=== PATIENT | female | born 1995 | race Caucasian/White ===

== ENCOUNTER 2022-09-07 14:51 | Outpatient (REF) | payer MEDICAID, SELFPAY ==
[2022-09-07 15:24] LABS: MANUAL DIFF FLAG NO
[2022-09-07 15:30] LABS: Basophils Percent Auto 0.6 % (0-2); Eosinophils Absolute Auto 0.3 X10*3/uL (0.0-0.4); Eosinophils Percent Auto 3.9 % (0-4); Hematocrit 33.2 % (37.0-47.0); Hemoglobin 10.3 g/dl (12.0-16.0); Imm Gran Abs Auto 0.02 X10*3/uL (0.00-0.03); Imm Gran Pct Auto 0.3 % (0.0-0.4); Lymphocytes Absolute Auto 2.4 X10*3/uL (1.2-4.9); Lymphocytes Percent Auto 33.4 % (20-40); Mean Corpuscular Volume 80.6 fL (80.0-98.0); Mean Platelet Volume 10.1 fL (9.4-12.3); Monocytes Absolute Auto 0.7 X10*3/uL (0.1-1.2); Monocytes Percent Auto 8.9 % (2-11); Neutrophils Absolute Auto 3.9 x10*3/uL (2.0-8.3); Neutrophils Percent Auto 52.9 % (45-73); Platelet Count 362 X10*3/uL (160-400); Red Blood Count 4.12 X10*6/uL (4.20-5.50); Red Cell Distribution Width 16.4 % (11.0-16.0); White Blood Count 7.3 X10*3/uL (4.8-10.8)
[2022-09-07 15:57] LABS: Alanine Aminotransferase 16 U/L (0-31); Albumin Level 4.2 g/dL (3.5-5.0); Alkaline Phosphatase 89 U/L (39-117); Anion Gap 13 (12-20); Aspartate Amino Transferase 18 U/L (5-31); Bilirubin Direct < 0.2 mg/dL (0.0-0.5); Bilirubin Total 0.2 mg/dL (0.0-1.0); Blood Urea Nitrogen 14 mg/dL (9-16); Calcium 9.6 mg/dL (8.4-10.2); Carbon Dioxide 28 mmol/L (22-29); Chloride 103 mmol/L (96-108); Estimated Glomerular Filt Rate > 60; Glucose Random 86 mg/dL (60-115); Potassium 4.8 mmol/L (3.3-5.1); Sodium 139 mmol/L (135-145); Total Protein 7.7 g/dL (6.5-8.0)
[2022-09-08 10:17] LABS: HBS Num1 5.66 mIU/mL (0-7.99); HBc Num1 0.05 S/CO (0.00-0.79); HBsAGNum1 0.14 S/CO (0.00-0.99); Hepatitis B Core Antibody Nonreactive (Nonreactive); Hepatitis B Surface Antigen Negative (Negative); ~HepC Num1 0.24 S/CO (0.00-0.79); ~Hepatitis B Surface Antibody NONREACTIVE (Nonreactive); ~Hepatitis C Antibody Nonreactive (Nonreactive)
[2022-09-09 07:30] LABS: Hepatitis A Antibody IgM 0.18 Index (0-0.79); ~Hepatitis A Antibody IgM Nonreactive (Nonreactive)
== END 2022-09-07 14:52 | disposition home or self-care (01) ==
LOC: HO.LAB 14:51
PROVIDERS: PCP Nurse Practitioner Family; Visit Provider Nurse Practitioner Psychiatric/Mental Health
DX: F10.20 Alcohol dependence, uncomplicated (principal)
CPT/HCPCS: 36415; 80048; 80076; 85025; 86704; 86706; 86709; 86803; 87340; 99211

== ENCOUNTER 2022-09-22 12:30 | Outpatient (RCR) | payer OTHER, SELFPAY ==
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
[2022-09-02 12:02] VITALS: BP 126/80; PULSE 88; TEMP 36.3
[2022-09-02 12:10] VITALS: BMI 30.9
--- NOTE | 2022-09-02 12:55 | PC.ADMIT ---
Patient is a 27 year old female who was referred to [facility] by her prescriber. Patient recently was admitted and discharged from [facility] s/p by cutting her wrist after heavily drinking alcohol. Patient believes that alcohol is a problem for her. She reports alcohol has impaired her judgment and fears urges to drink will interfere with her treatment. Patient reports passive SI, denied plan or intent to kill herself. Denied thoughts to harm herself. Patient has a diagnosis of Alcohol use disorder and Bipolar disorder. Patient is alert and oriented x4. Calm and cooperative. Presented with depressed mood and affect. Patient given a copy of her safety plan if needed. Patient given verbal and written information about AA meetings where she lives, 101 things she can do instead of using alcohol, drugs, and self harm behaviors, and marijuana use and addiction. Patient's goal this weekend is to attend AA meetings this weekend.
[2022-09-05 17:43] LABS: Amphetamine Screen Urine Not Detected (Not Detect); Barbiturates, Urine Not Detected (Not Detect); Benzodiazepines Screen Urine Not Detected (Not Detect); Cannabinoid Screen Urine POSITIVE (Not Detect); Cocaine Screen Urine Not Detected (Not Detect); Fentanyl, urine Not Detected (Not Detect); Opiate Screen Urine Not Detected (Not Detect); Phencyclidine Screen Urine Not Detected (Not Detect)
--- NOTE | 2022-09-07 14:56 | HO.PHPPROGNO ---
Subjective Subjective Date of Service: 09/07/22 Reason For Visit: bipolar,depression,anxiety Medical Problems Affecting Mental Status: No Interim History: Patient describes mood as ?agitated, angry, frustrated ?. Craving alcohol. Last drink was 1 month ago. Experiencing ongoing akathisia, reports the Cogentin is not helping enough. Passive SI, no intent/plan. Medication Compliance: Yes Side effects from medications: Yes (Active seizure from quetiapine.) Attending Groups: Yes Review of Systems Acute medical concerns: No Medical Review of Systems: unchanged Review of Systems Review of Systems Yes all other systems are reviewed and are negative Constitutional: Reports no additional constitutional complaints Mental Status Exam Mental Status Exam Narrative: NAD. Patient Appearance: Appropriate Patient Orientation: Person, Place, Time and Situation Level of Consciousness: Appropriate and Restless Patient Behavior: Appropriate, Cooperative and Good Eye Contact Mood Description: Depressed, Anxious and Angry Affect Description: Depressed, Anxious and Angry Patient Cognition Impaired: No Ability to Follow Directions: Good Speech Pattern: Clear and Appropriate Memory Description: Intact Hallucinations: None Delusions: Not Present Thought Process: Intact Thought Content: positive for Intact and positive for Suicidal Ideation (Passive, no intent or plan) Depressive Symptoms: Increased Anxiety, Increased Irritability, Difficulty Sleeping, Changes in Appetite (increased), Hopelessness, Isolating-Friends/Family, Increased Fatigue, Thoughts of /Suicide and Difficulty Concentrating Abnormal Motor Activity Signs and Symptoms: Restlessness Judgement: Fair Diagnostics Vital Signs (24Hr): BMI result Body Mass Index 30.9 Labs Labs: Laboratory Results - last 48 hr 09/05/22 11:51 Urine Opiates Screen Not Detected Urine Fentanyl Screen Not Detected Ur Barbiturates Screen Not Detected Ur Phencyclidine Scrn Not Detected Ur Amphetamines Screen Not Detected U Benzodiazepines Scrn Not Detected Urine Cocaine Screen Not Detected U Marijuana (THC) Screen POSITIVE H Assessment & Plan Assessment & Plan (1) Alcohol dependence, uncomplicated: Status: Acute Code(s): F10.20 - Alcohol dependence, uncomplicated Assessment and Plan: Patient describes mood as ?agitated, angry, frustrated ?. Craving alcohol. Discussed referral to [facility], as well as trial of naltrexone oral in order to help manage cravings. Discussed medications in detail, including risks, benefits, side effects, etc. Encouraged patient to utilize outside supports, including 12-step meetings, her mother, and a close friend. Participating in COD groups. Last drink was 1 month ago. Experiencing ongoing akathisia, reports the Cogentin is not helping enough. Has been taking 2 tabs of 0.5 instead of one tab, with little improvement. Discussed current dose of quetiapine. She says current dose is working to help manage bipolar sx. Discussed increasing dose of cogentin, was agreeable with this. Passive SI, no intent/plan. (2) Bipolar 2 disorder, major depressive episode: Status: Acute Code(s): F31.81 - Bipolar II disorder (3) Cannabis dependence: Status: Acute Code(s): F12.20 - Cannabis dependence, uncomplicated Plan 1. Continue with current [facility] plan of care. 2. Patient referred to [facility]. 3. Start naltrexone 25mg X 4 days, with increase to 50mg daily thereafter. 4. Increase benzotropine to 1mg BID. 5. Follow-up as per protocol. Patient educated on: diagnosis, medication risk/benefits, substance abuse and therapeutic strategies Informed Consent: understands Reason for contiued partial hosp. stay Substantial Risk for: harm to self, inability to function and rapid decompensation Certification I certify that partial hospital treatment is medically necessary due to the symptoms and problems resulting from the patient's mental illness and the failure to treat the patient at the partial hospital level of care would likely result in the patient requiring inpatient psychiatric care which could not be prevented at a less intensive level of care. I spent minutes with the patient and/or on the patient floor today, greater than?50% of which was spent counseling/coordinating care. Discharge Plan Discharge Attending provider: Darnell Beckett Medications: New naltrexone 50 mg tablet See Rx Instructions .ROUTE .COMPLEX Qty: 7 0RF Rx Instructions: Take 1/2 tab X 4 days, then start taking one tab (50mg daily). benztropine 1 mg tablet 1 mg PO BID Qty: 30 0RF No Action quetiapine [Seroquel] 25 mg Tablet 25 mg PO BEDTIME Rx Instructions: Take with 50 mg tab levothyroxine 88 mcg Tablet 88 mcg PO DAILY lorazepam 0.5 mg Tablet 0.5 mg PO DAILY PRN (Reason: Anxiety) pantoprazole 40 mg Tablet,Delayed Release (Dr/Ec) 40 mg PO BID duloxetine 60 mg Capsule,Delayed Release(Dr/Ec) 60 mg PO DAILY quetiapine [Seroquel] 50 mg Tablet 50 mg PO BEDTIME Rx Instructions: Take with 25 mg tablet, total dose 75 mg daily. quetiapine [Seroquel] 50 mg Tablet 50 mg PO BID PRN (Reason: Anxiety) Vivitrol 380 mg suspension,extended rel recon 380 mg IM Q4W Qty: 1 5RF
--- NOTE | 2022-09-08 13:13 | HO.PHPIOP ---
I called and spoke with pt after she abruptly left group stating she is very angry and wants a drink of alcohol. She said she is feeling calmer, and apologized for leaving. She said she is going to attend a meeting, and that there is a meeting in-person that she can get to at 1:30 (I called at 1pm). She said she is safe, and is not planning on drinking, and that she will be in program tomorrow.
--- NOTE | 2022-09-09 08:12 | HO.PHPIOP ---
Case opened in treatment team
--- NOTE | 2022-09-09 15:32 | HO.PHPIOP ---
The client left early. She called and reported that she received a call for her doctor that she has a positive strep test and is starting antibiotics . She states that she will be in Monday.
--- NOTE | 2022-09-12 13:50 | P.PNPSP_ITS ---
Subjective Subjective Date of Service: 09/12/22 Reason For Visit: bipolar,depression,anxiety Medical Problems Affecting Mental Status: No Interim History: Patient reports continued akathisia symptoms from quetiapine. Has been taking increased dose of Cogentin with no benefit. Last took quetiapine Monday night. Describes mood as ?okay?. No SI, no safety concerns reported. Sleep continues poor to fair, worsened since stopping Seroquel several nights ago. Has continued abstinence from alcohol. Has been attending AA meetings regularly. Medication Compliance: Intermittent Side effects from medications: Yes (Active seizure/EPS from quetiapine.) Attending Groups: Yes Review of Systems Acute medical concerns: No Medical Review of Systems: unchanged Review of Systems Review of Systems Yes all other systems are reviewed and are negative Constitutional: Reports no additional constitutional complaints Mental Status Exam Mental Status Exam Narrative: NAD. Patient Appearance: Appropriate Patient Orientation: Person, Place, Time and Situation Level of Consciousness: Appropriate and Restless Patient Behavior: Appropriate, Cooperative and Good Eye Contact Mood Description: Appropriate Affect Description: Depressed and Anxious (Appears to be improving ) Patient Cognition Impaired: No Ability to Follow Directions: Good Speech Pattern: Clear and Appropriate Memory Description: Intact Hallucinations: None Delusions: Not Present Thought Process: Intact Thought Content: positive for Intact and positive for Suicidal Ideation (Passive, no intent or plan) Depressive Symptoms: Increased Anxiety, Difficulty Sleeping, Changes in Appetite (increased), Increased Fatigue and Difficulty Concentrating Abnormal Motor Activity Signs and Symptoms: Restlessness Judgement: Fair Diagnostics Vital Signs (24Hr): BMI result Body Mass Index 30.9 Assessment & Plan Assessment & Plan (1) Bipolar 2 disorder, major depressive episode: Status: Acute Code(s): F31.81 - Bipolar II disorder Assessment and Plan: Bety describes symptoms continued of akathisia from the quetiapine, even with the increased dose of Cogentin. She stopped taking the medication Monday evening. We discussed alternatives, risks and benefits. Discussed adding risperidone and stopping all quetiapine. Discussed keeping Cogentin as needed. She was agreeable with this plan. Denies any thoughts of harm to self or others at this time, no safety concerns. Continues to remain abstinent from alcohol, attending local 12 step meetings. (2) Alcohol dependence, uncomplicated: Status: Acute Code(s): F10.20 - Alcohol dependence, uncomplicated (3) Cannabis dependence: Status: Acute Code(s): F12.20 - Cannabis dependence, uncomplicated Plan 1. Continue with current [facility] plan of care. 2. Discontinue all quetiapine. 3. Start risperidone 1 mg at bedtime. Patient educated on: diagnosis, medication risk/benefits, substance abuse and therapeutic strategies Informed Consent: understands Reason for contiued partial hosp. stay Substantial Risk for: inability to function, rapid decompensation and med/psych decompensation Certification I certify that partial hospital treatment is medically necessary due to the symptoms and problems resulting from the patient's mental illness and the failure to treat the patient at the partial hospital level of care would likely result in the patient requiring inpatient psychiatric care which could not be prevented at a less intensive level of care. I spent minutes with the patient and/or on the patient floor today, greater than?50% of which was spent counseling/coordinating care. Discharge Plan Discharge Attending provider: Darnell Beckett Medications: New naltrexone 50 mg tablet See Rx Instructions .ROUTE .COMPLEX Qty: 7 0RF Rx Instructions: Take 1/2 tab X 4 days, then start taking one tab (50mg daily). benztropine 1 mg tablet 1 mg PO BID Qty: 30 0RF risperidone [Risperdal] 1 mg tablet 1 mg PO BEDTIME Qty: 7 0RF Discontinued quetiapine [Seroquel] 25 mg Tablet 25 mg PO BEDTIME Rx Instructions: Take with 50 mg tab quetiapine [Seroquel] 50 mg Tablet 50 mg PO BEDTIME Rx Instructions: Take with 25 mg tablet, total dose 75 mg daily. quetiapine [Seroquel] 50 mg Tablet 50 mg PO BID PRN (Reason: Anxiety) No Action levothyroxine 88 mcg Tablet 88 mcg PO DAILY lorazepam 0.5 mg Tablet 0.5 mg PO DAILY PRN (Reason: Anxiety) pantoprazole 40 mg Tablet,Delayed Release (Dr/Ec) 40 mg PO BID duloxetine 60 mg Capsule,Delayed Release(Dr/Ec) 60 mg PO DAILY Vivitrol 380 mg suspension,extended rel recon 380 mg IM Q4W Qty: 1 5RF Stand Alone Forms: Patient Portal Discharge page
--- NOTE | 2022-09-22 13:02 | HO.PHPPROGNO ---
Subjective Subjective Date of Service: 09/22/22 Reason For Visit: bipolar,depression,anxiety Medical Problems Affecting Mental Status: No Interim History: Reports overall mood more stable. No SI. States she is ?a little anxious ?, as today is her last day. Wants to go to [facility] for further substance use treatment upon discharge from her today. Has been maintaining abstinence from alcohol throughout program. Attending regular 12 step meetings in community. Scheduled with [facility] for Vivitrol injection. Medication Compliance: Yes Side effects from medications: No Attending Groups: Yes Review of Systems Acute medical concerns: No Medical Review of Systems: unchanged Review of Systems Review of Systems Yes all other systems are reviewed and are negative Constitutional: Reports no additional constitutional complaints Mental Status Exam Mental Status Exam Narrative: NAD. Patient Appearance: Appropriate Patient Orientation: Person, Place, Time and Situation Level of Consciousness: Appropriate Patient Behavior: Appropriate, Cooperative and Good Eye Contact Mood Description: Appropriate and Anxious Affect Description: Appropriate Patient Cognition Impaired: No Ability to Follow Directions: Excellent Speech Pattern: Clear and Appropriate Memory Description: Intact Hallucinations: None Delusions: Not Present Thought Process: Intact Thought Content: positive for Intact Judgement: Good Diagnostics Vital Signs (24Hr): BMI result Body Mass Index 30.9 Assessment & Plan Assessment & Plan (1) Alcohol dependence, uncomplicated: Status: Acute Code(s): F10.20 - Alcohol dependence, uncomplicated Assessment and Plan: Patient receiving naltrexone 50 mg daily with positive affect. Has been able to maintain abstinence from alcohol. Has appointment scheduled with [facility] to receive Vivitrol injection. Plans to call [facility], to continue with treatment, as she is finding it helpful Attending regular AA meetings, finding them helpful. (2) Bipolar 2 disorder, major depressive episode: Status: Acute Code(s): F31.81 - Bipolar II disorder Assessment and Plan: Reports mood is more stable, less depressed since starting program. No SI, no safety concerns. Feels safe and stable for discharge from [facility] at this time. (3) Cannabis dependence: Status: Acute Code(s): F12.20 - Cannabis dependence, uncomplicated Assessment and Plan: Continues with cannabis use, not concerned with use at this time. Plan 1. Patient appears stable for discharge from [facility] at this time. 2. Patient to follow up with outpatient providers going forward. Patient educated on: diagnosis, medication risk/benefits and substance abuse Informed Consent: understands Reason for contiued partial hosp. stay Substantial Risk for: stable for discharge Certification I certify that partial hospital treatment is medically necessary due to the symptoms and problems resulting from the patient's mental illness and the failure to treat the patient at the partial hospital level of care would likely result in the patient requiring inpatient psychiatric care which could not be prevented at a less intensive level of care. I spent minutes with the patient and/or on the patient floor today, greater than?50% of which was spent counseling/coordinating care. Discharge Plan Discharge Attending provider: Darnell Beckett Additional Instructions: Appointment at [facility] 4th floor [address] om 09/23/22 at 2:30 PM. #[phone]. Medications: New benztropine 1 mg tablet 1 mg PO BID Qty: 30 0RF naltrexone 50 mg tablet 50 mg PO DAILY Qty: 30 0RF risperidone 1 mg tablet 1 mg PO BEDTIME Qty: 30 0RF Discontinued quetiapine [Seroquel] 25 mg Tablet 25 mg PO BEDTIME Rx Instructions: Take with 50 mg tab quetiapine [Seroquel] 50 mg Tablet 50 mg PO BEDTIME Rx Instructions: Take with 25 mg tablet, total dose 75 mg daily. quetiapine [Seroquel] 50 mg Tablet 50 mg PO BID PRN (Reason: Anxiety) No Action levothyroxine 88 mcg Tablet 88 mcg PO DAILY lorazepam 0.5 mg Tablet 0.5 mg PO DAILY PRN (Reason: Anxiety) pantoprazole 40 mg Tablet,Delayed Release (Dr/Ec) 40 mg PO BID duloxetine 60 mg Capsule,Delayed Release(Dr/Ec) 60 mg PO DAILY Vivitrol 380 mg suspension,extended rel recon 380 mg IM Q4W Qty: 1 5RF Stand Alone Forms: Patient Portal Discharge page Patient Education: Bipolar Disorder (GEN), Cannabis Abuse (DC)
== END 2022-09-22 23:59 | disposition home or self-care (01) ==
LOC: HO.PHPA 12:30
PROVIDERS: Visit Provider Psychiatry & Neurology Psychiatry
DX: F31.81 Bipolar II disorder (principal); F10.20 Alcohol dependence, uncomplicated; F12.20 Cannabis dependence, uncomplicated; Z79.899 Other long term (current) drug therapy
CPT/HCPCS: 80307; 90792; 90853

== ENCOUNTER → 2022-09-23 14:20 | Outpatient (BNVA) | payer MEDICAID, SELFPAY | PROVIDERS: PCP Nurse Practitioner Family; Visit Provider Nurse Practitioner Psychiatric/Mental Health | DX: Z51.81 Encounter for therapeutic drug level monitoring (principal); F10.20 Alcohol dependence, uncomplicated | CPT/HCPCS: 80305; 81025; 96372; 99212 ==

== ENCOUNTER → 2022-10-21 13:10 | Outpatient (BNVA) | payer MEDICAID, SELFPAY | PROVIDERS: PCP Nurse Practitioner Family; Visit Provider Nurse Practitioner Psychiatric/Mental Health | DX: Z51.81 Encounter for therapeutic drug level monitoring (principal); F10.20 Alcohol dependence, uncomplicated | CPT/HCPCS: 80305; 81025; 96372; 99212 ==

== ENCOUNTER 2022-11-21 13:06 | Outpatient (REF) | payer MEDICAID, SELFPAY ==
--- NOTE | 2022-11-21 13:12 | ECG_ITS ---
Test Reason : f31.81 Blood Pressure : / mmHG Vent. Rate : 082 BPM Atrial Rate : 082 BPM P-R Int : 152 ms QRS Dur : 088 ms QT Int : 368 ms P-R-T Axes : 054 046 031 degrees QTc Int : 429 ms Normal sinus rhythm Normal ECG No previous ECGs available Referred By: Doris Henriquez Electronically Signed By:GOKUL BAJWA MD
[2022-11-21 14:40] LABS: Anion Gap 14 (12-20); Blood Urea Nitrogen 17 mg/dL (9-16); Carbon Dioxide 21 mmol/L (22-29); Chloride 106 mmol/L (96-108); Potassium 4.3 mmol/L (3.3-5.1); Sodium 137 mmol/L (135-145)
[2022-11-21 14:41] LABS: Alanine Aminotransferase 9 U/L (0-31); Albumin Level 3.9 g/dL (3.5-5.0); Alkaline Phosphatase 95 U/L (39-117); Aspartate Amino Transferase 16 U/L (5-31); Bilirubin Total < 0.2 mg/dL (0.0-1.0); Calcium 9.1 mg/dL (8.4-10.2); Estimated Glomerular Filt Rate > 60; Glucose Random 86 mg/dL (60-115); Total Protein 7.5 g/dL (6.5-8.0)
[2022-11-21 14:56] LABS: Free T4 (Free Thyroxine) 0.91 ng/dL (0.71-1.85); Thyroid Stimulating Hormone 1.81 uIU/mL (0.32-4.0)
== END 2022-11-21 13:07 | disposition home or self-care (01) ==
LOC: HO.LAB 13:06
PROVIDERS: PCP Nurse Practitioner Family; Visit Provider Nurse Practitioner Psychiatric/Mental Health
DX: Z51.81 Encounter for therapeutic drug level monitoring (principal); F31.81 Bipolar II disorder; F10.20 Alcohol dependence, uncomplicated; F12.20 Cannabis dependence, uncomplicated; Z79.899 Other long term (current) drug therapy
CPT/HCPCS: 36415; 80053; 80305; 81025; 84439; 84443; 93005; 96372; 99212

== ENCOUNTER 2022-12-07 13:00 | Outpatient (RCR) | payer OTHER, SELFPAY ==
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
[2022-11-21 11:12] VITALS: BMI 32.8
[2022-11-21 11:13] VITALS: BP 114/78; PULSE 80; TEMP 37.2
[2022-11-21 15:30] LABS: Amphetamine Screen Urine Not Detected (Not Detect); Barbiturates, Urine Not Detected (Not Detect); Benzodiazepines Screen Urine Not Detected (Not Detect); Cannabinoid Screen Urine POSITIVE (Not Detect); Cocaine Screen Urine Not Detected (Not Detect); Fentanyl, urine Not Detected (Not Detect); Opiate Screen Urine Not Detected (Not Detect); Phencyclidine Screen Urine Not Detected (Not Detect)
--- NOTE | 2022-11-24 16:09 | HO.PHPIOP ---
Case opened in treatment team.
--- NOTE | 2022-11-29 09:56 | HO.PHPPROGNO ---
Subjective Subjective Date of Service: 11/29/22 Reason For Visit: bipolar I,ANGELA Medical Problems Affecting Mental Status: No Interim History: Reviewed labs and EKG prior to meeting with patient today, no concerns. Bety Describes mood as ?okay ?. Reports continues with ongoing anxiety. No SI, no safety concerns. Mirtazapine working well for sleep, no concerns. Finding groups helpful. Reports AUD recovery going well. 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 Medication Compliance: Yes Side effects from medications: No Attending Groups: Yes Review of Systems Acute medical concerns: No Medical Review of Systems: unchanged Review of Systems Review of Systems Yes all other systems are reviewed and are negative Constitutional: Reports no additional constitutional complaints Mental Status Exam Mental Status Exam Narrative: NAD. Patient Appearance: Appropriate Patient Orientation: Person, Place, Time and Situation Level of Consciousness: Appropriate Patient Behavior: Appropriate, Cooperative and Good Eye Contact Mood Description: Anxious Affect Description: Depressed (improving) and Flat Patient Cognition Impaired: No Ability to Follow Directions: Excellent Speech Pattern: Clear and Appropriate Memory Description: Intact Hallucinations: None Delusions: Not Present Thought Process: Intact, Goal Oriented and Linear Thought Content: positive for Intact, positive for Goal Oriented and positive for Linear Depressive Symptoms: Increased Anxiety, Changes in Appetite, Loss of Int. in Activity, Unhappiness, Increased Fatigue and Thoughts of /Suicide Judgement: Fair Diagnostics Vital Signs (24Hr): BMI result Body Mass Index 32.8 Assessment & Plan Assessment & Plan (1) Bipolar 2 disorder, major depressive episode: Status: Acute Code(s): F31.81 - Bipolar II disorder Assessment and Plan: Micki reports mood is ?okay ?, although continues with anxiety. No SI reported, no safety concerns. Tolerating medications well, including mirtazapine for sleep. Able to express some hope for the future, thinking about changing careers. Remains abstinent from alcohol at this time, did not discuss current cannabis use, although patient has been working on stopping. Finding groups helpful. (2) Alcohol dependence, uncomplicated: Status: Acute Code(s): F10.20 - Alcohol dependence, uncomplicated (3) Cannabis dependence: Status: Acute Code(s): F12.20 - Cannabis dependence, uncomplicated Plan 1. Continue with current [facility] plan of care. 2. Refill mirtazapine 3.75 p.r.n. for sleep sent to pharmacy. 3. Follow-up as per protocol. Patient educated on: diagnosis, medication risk/benefits, substance abuse and therapeutic strategies Informed Consent: understands Reason for contiued partial hosp. stay Substantial Risk for: harm to self and inability to function Certification I certify that partial hospital treatment is medically necessary due to the symptoms and problems resulting from the patient's mental illness and the failure to treat the patient at the partial hospital level of care would likely result in the patient requiring inpatient psychiatric care which could not be prevented at a less intensive level of care. Total time managing care of this patient today __20__ minutes. Discharge Plan Discharge Attending provider: Darnell Beckett Medications: New mirtazapine 7.5 mg tablet 3.75 mg PO BEDTIME PRN (Reason: sleep) Qty: 14 0RF No Action levothyroxine 88 mcg Tablet 88 mcg PO DAILY Label Comments: Last filled May 2022 3 month supply. Patient reports she has missed some doses however stated she mostly takes every day. lorazepam 0.5 mg Tablet 0.5 mg PO DAILY PRN (Reason: Anxiety) pantoprazole 40 mg Tablet,Delayed Release (Dr/Ec) 40 mg PO BID duloxetine 60 mg Capsule,Delayed Release(Dr/Ec) 60 mg PO DAILY risperidone 1 mg tablet 1 mg PO BEDTIME Rx Instructions: take one tab daily at bedtime Vivitrol 380 mg suspension,extended rel recon 380 mg IM Q4W Qty: 1 5RF Stand Alone Forms: Patient Portal Discharge page Patient Education: Mirtazapine (By mouth)
--- NOTE | 2022-12-01 10:48 | P.EN_ITS ---
Event Note Date of Service: 12/01/22 Event Note: This card writer hand called patient, as she has left early not feeling well. She reports she is safe, no intentions of self-harm. Has been experiencing cravings to drink today, but has no intent or plan to do so. Sharing a 12 step meeting tonight. Has plan to clean apartment today, talk with friends. Overall states she is feeling okay, just not a great day . Discussed going to a 12 step meeting at noon time, calling somebody such as a close friend, also option to take p.o. naltrexone today. Time Spent With Patient Time: Total time managing care of this patient today _10___ minutes.
--- NOTE | 2022-12-02 15:04 | HO.PHPIOP ---
I called and left a message on pt's home phone asking her to pls call to discuss schedule.
--- NOTE | 2022-12-07 10:25 | HO.PHPPROGNO ---
Subjective Subjective Date of Service: 12/07/22 Reason For Visit: bipolar I,ANGELA Medical Problems Affecting Mental Status: No Interim History: Describes mood as ?okay ?. Stopped mirtazapine, reports felt irritable, spending money while taking it. Overall reports improvement. No SI, no safety concerns. Remains abstinent from alcohol, decreased cannabis. No concerns, feels ready for discharge from [facility]. Medication Compliance: Yes Side effects from medications: Yes (Mirtazapine, irritability, impuls spending. Symptoms subsiding after stop) Attending Groups: Yes Review of Systems Acute medical concerns: No Medical Review of Systems: unchanged Review of Systems Review of Systems Yes all other systems are reviewed and are negative Constitutional: Reports no additional constitutional complaints Mental Status Exam Mental Status Exam Narrative: NAD. Patient Appearance: Appropriate Patient Orientation: Person, Place, Time and Situation Level of Consciousness: Appropriate Patient Behavior: Appropriate, Cooperative and Good Eye Contact Mood Description: Calm and Appropriate Affect Description: Appropriate Patient Cognition Impaired: No Ability to Follow Directions: Excellent Speech Pattern: Clear and Appropriate Memory Description: Intact Hallucinations: None Delusions: Not Present Thought Process: Intact, Goal Oriented and Linear Thought Content: positive for Intact, positive for Goal Oriented and positive for Linear Depressive Symptoms: Increased Anxiety and Thoughts of /Suicide Judgement: Good Diagnostics Vital Signs (24Hr): BMI result Body Mass Index 32.8 Assessment & Plan Assessment & Plan (1) Bipolar 2 disorder, major depressive episode: Status: Acute Code(s): F31.81 - Bipolar II disorder Assessment and Plan: Overall improved mood, describes as ?okay ?. Stable affect. No SI, no safety concerns. Stopped mirtazapine, continues with other medications as prescribed. Plans to apply for jobs after discharge from program. Able to express hope for future. (2) Alcohol dependence, uncomplicated: Status: Acute Code(s): F10.20 - Alcohol dependence, uncomplicated Assessment and Plan: Continues with abstinence, no concerns. Connected to support/recovery community. (3) Cannabis dependence: Status: Acute Code(s): F12.20 - Cannabis dependence, uncomplicated Assessment and Plan: Harm reduction, use has decreased. Plan 1. Patient appears stable for discharge from [facility] at this time. 2. Patient to follow-up with outpatient providers going forward. Patient educated on: diagnosis, medication risk/benefits, substance abuse and therapeutic strategies Informed Consent: understands Reason for contiued partial hosp. stay Substantial Risk for: stable for discharge Certification I certify that partial hospital treatment is medically necessary due to the symptoms and problems resulting from the patient's mental illness and the failure to treat the patient at the partial hospital level of care would likely result in the patient requiring inpatient psychiatric care which could not be prevented at a less intensive level of care. Total time managing care of this patient today _20___ minutes. Discharge Plan Discharge Attending provider: Darnell Beckett Medications: New mirtazapine 7.5 mg tablet 3.75 mg PO BEDTIME PRN (Reason: sleep) Qty: 14 0RF No Action levothyroxine 88 mcg Tablet 88 mcg PO DAILY Label Comments: Last filled May 2022 3 month supply. Patient reports she has missed some doses however stated she mostly takes every day. lorazepam 0.5 mg Tablet 0.5 mg PO DAILY PRN (Reason: Anxiety) pantoprazole 40 mg Tablet,Delayed Release (Dr/Ec) 40 mg PO BID duloxetine 60 mg Capsule,Delayed Release(Dr/Ec) 60 mg PO DAILY risperidone 1 mg tablet 1 mg PO BEDTIME Rx Instructions: take one tab daily at bedtime Vivitrol 380 mg suspension,extended rel recon 380 mg IM Q4W Qty: 1 5RF Stand Alone Forms: Patient Portal Discharge page Patient Education: Mirtazapine (By mouth), Bipolar Disorder (DC), Cannabis Abuse (DC)
--- NOTE | 2022-12-07 13:15 | HO.PHP ---
I called and left a message for pt's therapist at [facility], Tamera Louis. I informed her of pt's successful completion of PHP today.
== END 2022-12-07 23:59 | disposition home or self-care (01) ==
LOC: HO.PHPA 13:00
PROVIDERS: Nurse Practitioner Psychiatric/Mental Health; Visit Provider Psychiatry & Neurology Psychiatry
DX: F31.81 Bipolar II disorder (principal); F10.20 Alcohol dependence, uncomplicated; F12.20 Cannabis dependence, uncomplicated; Z79.899 Other long term (current) drug therapy
CPT/HCPCS: 80307; 90791; 90853

== ENCOUNTER → 2022-12-21 14:05 | Outpatient (BNVA) | payer MEDICAID, SELFPAY | PROVIDERS: PCP Nurse Practitioner Family; Visit Provider Nurse Practitioner Psychiatric/Mental Health | DX: F10.20 Alcohol dependence, uncomplicated (principal) | CPT/HCPCS: 99212 ==

== ENCOUNTER → 2025-08-26 09:30 | Outpatient (BNV) | payer OTHER, SELFPAY | PROVIDERS: Visit Provider Psychiatry & Neurology Psychiatry | DX: F31.81 Bipolar II disorder (principal); F10.20 Alcohol dependence, uncomplicated; F12.20 Cannabis dependence, uncomplicated | CPT/HCPCS: 99214 ==

== ENCOUNTER 2025-09-09 11:30 | Outpatient (RCR) | payer OTHER, SELFPAY ==
[2025-08-22 11:29] VITALS: BMI 33.3
[2025-08-22 11:33] VITALS: BP 108/70; PULSE 60; TEMP 36.8
--- NOTE | 2025-08-22 13:05 | PC.ADMIT ---
Patient is a 30 year old partnered female who self referred to [facility] secondary to increased depression and grief secondary to loss of her Izzy in March 2025. Patient reports she has not fully grieved the loss of her Izzy's whom she was close to. Patient reports she has been uncontrollably crying for the past five months. Patient has taken a leave of absence from work to work on her mental health. 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 She reports her boyfriend of four years is supportive whom she lives with. She also stated her mother is supportive. Patient is alert and oriented x4. She is calm and cooperative. She presented with depressed mood and anxious affect. Regarding SI patient denied currently. Patient reports she does get thoughts however she denied any plans or intent to kill herself. Patient was given a copy of her safety plan if needed. Patient reports she has been using marijuana daily and has a history of binge drinking alcohol. Patient reports she would drink anywhere from 4-10 shots of hard alcohol. Last drink was two weeks ago. Patient stated, I had 1.5 years sober and binge drank all of July almost every day . Patient reports history of alcohol withdrawal sxs 2 weeks ago stated that felt tremulousness, diarrhea, and vomiting. Denied history of seizures. Denied any current withdrawal sxs from alcohol. Patient educated about the dangers of alcohol withdrawal. Patient denied any current alcohol withdrawal sxs, no tremors, no diaphoresis, nausea, no vomiting. BP WNL. Patient does have a history of self harm by cutting for the past 14 years. Stated the last time she cut herself was a week and a 1/2 ago. Patient given education about things she can do when feeling strong emotions besides self harm.
[2025-08-22 15:03] LABS: Cannabinoid Screen Urine POSITIVE (Not Detect)
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
--- NOTE | 2025-08-26 12:03 | HO.PHP ---
[facility] staff member met with Bety to review her treatment plan. While meeting with Bety she was tearful throughout the conversation. PHP staff member attempted to provide her with support due to her struggling with the loss of her sunshine. Bety stated that she doesn't want to discuss it and said she would like to review the treatment plan. Bety continued to cry throughout the review. Bety was making comments around that she doesn't want to do this anymore or be here. [facility] assessed with Bety if she has any plan or intent to act on those thoughts. Bety disclosed that she does not and has no plan. PHP staff member voiced that Bety mentioned in group this morning that she is having thoughts around self harming. PHP staff member explored with Bety when the last time she self harmed was, which was 2 weeks ago. [facility] staff asked Bety what is stopping her from acting on those thoughts. Bety said she doesn't want to engage in cutting behaviors anymore because she is embarrased by the scars that she has left on herself. Bety mentioned she engages in this behavior to feel her emotions and get them out. PHP staff member provided her with safer alternatives such as utilizing a sensory brush, cold compress, or snapping a rubber band. Bety said she doesn't find those to be helpful. PHP staff explored if her boyfriend could lock all sharps up. She said he could but she doesn't feel that is necessary because she said if she wanted to cut, she would find a way. Bety currently has no plan or intent to act on her thoughts. Bety was able to proceed with the treatment plan.
--- NOTE | 2025-08-26 12:09 | HO.PHP ---
[facility] staff member placed a referral for OP therapy and med management for Bety through [facility]. [facility] staff member is awaiting on a call with the appointment dates and times.
--- NOTE | 2025-08-26 22:50 | HO.PHPPROGNO ---
Subjective Subjective Date of Service: 08/26/25 Reason For Visit: anxiety,depression Interim History: Patient seen with staff crying in the hallway. I cant sleep.... It's hard to fall asleep . Patient has been very easily tearful, feeling emotional overwhelmed, sometimes no clear trigger or precipitant. Tried increasing the gabapentin to 300 mg qhs for sleep. Did not fall asleep, was not sedating, but she did notice gabapentin 300 mg was helpful to relax. Is interested in taking gabapentin during the day. Continues on risperidone 0.5 mg BID helps for a little while in the morning, but then feels like she is falling apart a couple hours later. Most of day, feels vulnerable and overstimulated. Takes lorazepam 1 mg (0.5 mg ineffective) is frustrated that she tried talking to her provider about increase dose to 1 mg however the provider rxes #10 of 0.5 mg tabs Medication Compliance: Yes Side effects from medications: No Attending Groups: Yes Review of Systems Acute medical concerns: No Review of Systems Review of Systems Yes all other systems are reviewed and are negative Constitutional: Reports no additional constitutional complaints Mental Status Exam Mental Status Exam Narrative: NAD. Patient Orientation: Person, Place, Time and Situation Level of Consciousness: Appropriate Patient Behavior: Appropriate, Cooperative and Crying Mood Description: Depressed and Anxious Affect Description: Fearful and Sad Patient Cognition Impaired: No Ability to Follow Directions: Excellent Speech Pattern: Clear and Appropriate Memory Description: Intact Hallucinations: None Delusions: Not Present Thought Process: Linear Thought Content: positive for Goal Oriented and positive for Linear Depressive Symptoms: Increased Anxiety and Thoughts of /Suicide Judgement: Good Diagnostics Vital Signs (24Hr): BMI result Body Mass Index 33.3 Assessment & Plan Assessment & Plan (1) Bipolar 2 disorder, major depressive episode: Status: Acute Code(s): F31.81 - Bipolar II disorder (2) Alcohol dependence, uncomplicated: Status: Acute Code(s): F10.20 - Alcohol dependence, uncomplicated (3) Cannabis dependence: Status: Acute Code(s): F12.20 - Cannabis dependence, uncomplicated Plan Admit to [facility] VS reviewed: afebrile, BP 108/70;?60 bpm start lurasidone 20 mg mg qd with evening meal start propranolol 5-10 mg BID-TID prn anxiety (will be mindful of AE kenna since pt takes clonidine at bedtime) continue risperidone 0.5 mg BID (would benefit from TID, but instead will start lurasidone) continue Lamictal 150 mg qd continue Ativan 0.5 mg BID prn anxiety (warned regarding alcohol addiction and BZD use) continue gabapenting 100 mg tid continue clonidine 0.3 mg qhs prn (she is aware to keep propranolol dosing before 5pm) continue regular medications for now Routine lab work as indicated EKG, routine baseline QTc for medication considerations as indicated UDS as indicated MassPat reviewed Continue to monitor as per protocol Patient educated on: diagnosis, medication risk/benefits, substance abuse and therapeutic strategies Informed Consent: understands Reason for contiued partial hosp. stay Substantial Risk for: inability to function, rapid decompensation and med/psych decompensation Certification I certify that partial hospital treatment is medically necessary due to the symptoms and problems resulting from the patient's mental illness and the failure to treat the patient at the partial hospital level of care would likely result in the patient requiring inpatient psychiatric care which could not be prevented at a less intensive level of care. Total time managing care of this patient today __30__ minutes. Discharge Plan Discharge Attending provider: Mildred Trujillo Medications: New lurasidone 20 mg tablet 20 mg PO QPM Qty: 14 0RF Rx Instructions: must administer with food (at least 350 calories) propranolol 10 mg tablet 5 - 10 mg PO TID PRN (Reason: anxiety) Qty: 30 0RF gabapentin 400 mg capsule 400 mg PO TID Qty: 30 0RF Continued levothyroxine 88 mcg Tablet 88 mcg PO DAILY Patient Comments: Last filled May 2022 3 month supply. Patient reports she has missed some doses however stated she mostly takes every day. duloxetine 60 mg Capsule,Delayed Release(Dr/Ec) 60 mg PO DAILY Rx Instructions: Last filled 06/30/25 for a 90 day supply. celecoxib 200 mg capsule 200 mg PO BID lamotrigine 150 mg tablet 150 mg PO DAILY famotidine 40 mg tablet 40 mg PO BEDTIME clonidine HCl 0.3 mg tablet 0.3 mg PO BEDTIME Rx Instructions: TAKE 1 TABLET EVERY DAY BY ORAL ROUTE AT BEDTIME, FOR INSOMNIA. lorazepam 1 mg tablet 0.5 mg PO BID PRN (Reason: anxiety) esomeprazole magnesium 40 mg capsule,delayed release(DR/EC) 40 mg PO QAM Rx Instructions: TAKE 1 CAPSULE BY MOUTH 30-60 MINUTES BEFORE BREAKFAST ONCE DAILY X90 DAYS Changed risperidone 0.5 mg tablet 0.5 mg PO BID PRN (Reason: Agitation) Qty: 20 0RF No Action duloxetine 30 mg capsule,delayed release(DR/EC) See Rx Instructions .ROUTE .COMPLEX Rx Instructions: Filled on 07/21/25 fro a 90 day supply. Patient stated she is only taking 60 mg tab daily of Duloxetine and is not on the 30 mg tablet in addition to the 60 mg tablet. zolpidem 5 mg tablet 5 mg PO BEDTIME PRN (Reason: insomnia) gabapentin 100 mg capsule 100 mg PO TID Stand Alone Forms: Patient Portal Discharge page Print Language: Polish
--- NOTE | 2025-08-28 13:20 | HO.PHP ---
[facility] staff member spoke with Juanis at [facility] and gathered Bety's med provider appointment which will be with Yvonne Quiñones on September 15, 2025 at 3 PM at [address] [place] [address] [address] in [place], [place] . Juanis disclosed that there is a wait list currently for inperson OP therapy, which takes typically 3 weeks but she is going to asim as urgent since she is in PHP service setting at this time. [facility] staff member was receptive.
--- NOTE | 2025-08-28 15:17 | HO.PHP ---
Clients case was opened and reviewed in teams.
--- NOTE | 2025-09-05 15:49 | HO.PHPPROGNO ---
Subjective Subjective Date of Service: 09/02/25 Reason For Visit: anxiety,depression Interim History: Patient seen for follow-up for h/o panic attacks, persistent panic symptoms, high anxiety still experiencing a lot of anxiety says it is predominantly mental/cognitive/generalized anxiety. Body anxiety has been more much better with addition of propranolol and gabapentin during the day She has been taking gabapentin at 400 mg in the morning at lunch in the late afternoon as well as propranolol 10 mg and has noticed considerable reduction in panic symptoms. She denies any panic attacks in the interim since starting on both these medications. She denies any lightheadedness, dizziness, sedation or other side effects from medication. Appears to be well tolerated Mood is ?okyousuf reports depression severity has improved from an 8/10 to a 6 or 7/10. SHe continues on Latuda 20 mg has not had any adverse effects in his willing to increase dose to 40 mg day. He has been having difficulty sleeping found 600 mg gabapentin provided a couple more hours of sleep but still feels there is a lot of room for improvement. Reports failing trazodone not helpful , hydroxuzine, diphenhydramine. Having disrupted sleep waking every hour to. She asks about increasing dose of the Ambien to 10 mg she says she has previously been prescribed. Discussed bumping dose of gabapentin from 600 to 800 mg, and may alternate with taking 7.5 of Ambien since her oupatient provider prefered not to keep her dose at 10 mg. (denies was due to any conerns or adverse effects) Review of Systems Review of Systems Yes all other systems are reviewed and are negative Constitutional: Reports no additional constitutional complaints Mental Status Exam Mental Status Exam Patient Orientation: Person, Place, Time and Situation Level of Consciousness: Appropriate Patient Behavior: Appropriate, Cooperative and Crying Mood Description: Depressed and Anxious Affect Description: Appropriate and Constricted Patient Cognition Impaired: No Ability to Follow Directions: Excellent Speech Pattern: Clear and Appropriate Memory Description: Intact Hallucinations: None Delusions: Not Present Thought Process: Linear Thought Content: positive for Goal Oriented and positive for Linear Depressive Symptoms: Increased Anxiety and Thoughts of /Suicide Judgement: Good Diagnostics Vital Signs (24Hr): BMI result Body Mass Index 33.3 Assessment & Plan Assessment & Plan (1) Bipolar 2 disorder, major depressive episode: Status: Acute Code(s): F31.81 - Bipolar II disorder (2) Alcohol dependence, uncomplicated: Status: Acute Code(s): F10.20 - Alcohol dependence, uncomplicated (3) Cannabis dependence: Status: Acute Code(s): F12.20 - Cannabis dependence, uncomplicated Plan continue PHP increase lurasidone to 40 mg mg qd with evening meal continue propranolol 5-10 mg TID prn anxiety (to be taken no later than 5pm - since pt takes clonidine at bedtime) continue risperidone 0.5 mg BID (would benefit from TID, but instead will start lurasidone) continue Lamictal 150 mg qd increase gabapentin 400 mg tid and 800 mg qhs continue clonidine 0.3 mg qhs prn (she is aware to keep propranolol dosing before 5pm) continue zolpidem at 5- 7.5 mg qhs prn insomnia continue other regular medications Routine lab work as indicated EKG, routine baseline QTc for medication considerations as indicated Continue to monitor Patient educated on: diagnosis, medication risk/benefits, substance abuse and therapeutic strategies Informed Consent: understands Reason for contiued partial hosp. stay Substantial Risk for: inability to function, rapid decompensation and med/psych decompensation Certification I certify that partial hospital treatment is medically necessary due to the symptoms and problems resulting from the patient's mental illness and the failure to treat the patient at the partial hospital level of care would likely result in the patient requiring inpatient psychiatric care which could not be prevented at a less intensive level of care. Total time managing care of this patient today __30__ minutes. Discharge Plan Discharge Attending provider: Mildred Trujillo Medications: New propranolol 10 mg tablet 5 - 10 mg PO TID PRN (Reason: anxiety) Qty: 30 0RF gabapentin 800 mg tablet 800 mg PO BEDTIME Qty: 14 0RF lurasidone 40 mg tablet 40 mg PO QPM Qty: 14 0RF Rx Instructions: must administer with food (at least 350 calories) Continued levothyroxine 88 mcg Tablet 88 mcg PO DAILY Patient Comments: Last filled May 2022 3 month supply. Patient reports she has missed some doses however stated she mostly takes every day. duloxetine 60 mg Capsule,Delayed Release(Dr/Ec) 60 mg PO DAILY Rx Instructions: Last filled 06/30/25 for a 90 day supply. celecoxib 200 mg capsule 200 mg PO BID lamotrigine 150 mg tablet 150 mg PO DAILY famotidine 40 mg tablet 40 mg PO BEDTIME clonidine HCl 0.3 mg tablet 0.3 mg PO BEDTIME Rx Instructions: TAKE 1 TABLET EVERY DAY BY ORAL ROUTE AT BEDTIME, FOR INSOMNIA. lorazepam 1 mg tablet 0.5 mg PO BID PRN (Reason: anxiety) esomeprazole magnesium 40 mg capsule,delayed release(DR/EC) 40 mg PO QAM Rx Instructions: TAKE 1 CAPSULE BY MOUTH 30-60 MINUTES BEFORE BREAKFAST ONCE DAILY X90 DAYS gabapentin 400 mg capsule 400 mg PO TID Qty: 45 0RF Changed risperidone 0.5 mg tablet 0.5 mg PO BID PRN (Reason: Agitation) Qty: 20 0RF zolpidem 5 mg tablet 5 - 7.5 mg PO BEDTIME PRN (Reason: insomnia) Qty: 21 0RF Discontinued gabapentin 100 mg capsule 100 mg PO TID No Action duloxetine 30 mg capsule,delayed release(DR/EC) See Rx Instructions .ROUTE .COMPLEX Rx Instructions: Filled on 07/21/25 fro a 90 day supply. Patient stated she is only taking 60 mg tab daily of Duloxetine and is not on the 30 mg tablet in addition to the 60 mg tablet. Stand Alone Forms: Patient Portal Discharge page Print Language: Yoruba
--- NOTE | 2025-09-08 15:26 | HO.PHP ---
[facility] staff member reached out to [facility] to gather Bety's OP therapy and med management appointment times. Bety is scheduled to meet with the med provider, Yvonne on September 15, 2025 at 3 PM. Bety is currently on a waitlist for therapy due to requesting a female therapist.
--- NOTE | 2025-09-09 13:17 | P.PNPSP_ITS ---
Subjective Subjective Date of Service: 09/09/25 Reason For Visit: anxiety,depression Interim History: Bety was seen in preparation for her ending PHP today. She has found the experience helpful. This is her 3rd time over the last 3 years with us. She had some questions about her medications which we discussed. She will continue gabapentin 800 mg q.h.s. and 400 mg t.i.d., Latuda 40 mg daily, Inderal 10 mg t.i.d., clonidine 0.3 mg nightly, Cymbalta 60 mg nightly, Lamictal 150 mg daily, Ativan 1 mg daily, Risperdal 0.5 mg t.i.d., Ambien 7.5 mg q.h.s.. She continues to have passive suicidal ideations and wishing not to be here however denies any plans or danger. She still resorts to cutting as a way of coping. She is on a wait list for therapy and has an appointment with a psychiatrist on 09/15. She believes she has enough medication till then but will check and if she is going to be short she will contact us tomorrow. She lives with her boyfriend Medication Compliance: Yes Side effects from medications: No Attending Groups: Yes Review of Systems Review of Systems Yes all other systems are reviewed and are negative Mental Status Exam Mental Status Exam Narrative: In today's visit she is alert, oriented and pleasant. Speech is soft-spoken and slow. Moderate eye contact. Affect is constricted and subdued. No signs of psychosis. No delusions. She has wishes of not being here but denies any active SI or plans or danger. Cognitively she has slow thought processes. She moves all limbs. No gait abnormalities. Judgment is intact. Diagnostics Vital Signs (24Hr): BMI result Body Mass Index 33.3 Assessment & Plan Certification I certify that partial hospital treatment is medically necessary due to the symptoms and problems resulting from the patient's mental illness and the failure to treat the patient at the partial hospital level of care would likely result in the patient requiring inpatient psychiatric care which could not be prevented at a less intensive level of care. Total time managing care of this patient today ____ minutes. Discharge Plan Discharge Attending provider: Mildred Trujillo Additional Instructions: Bety is scheduled to meet with the med providerYvonne on September 15, 2025 at 3 PM. Bety is currently on a waitlist for therapy through [facility] due to requesting a female therapist. Medications: New propranolol 10 mg tablet 5 - 10 mg PO TID PRN (Reason: anxiety) Qty: 30 0RF gabapentin 800 mg tablet 800 mg PO BEDTIME Qty: 14 0RF lurasidone 40 mg tablet 40 mg PO QPM Qty: 14 0RF Rx Instructions: must administer with food (at least 350 calories) Continued levothyroxine 88 mcg Tablet 88 mcg PO DAILY Patient Comments: Last filled May 2022 3 month supply. Patient reports she has missed some doses however stated she mostly takes every day. duloxetine 60 mg Capsule,Delayed Release(Dr/Ec) 60 mg PO DAILY Rx Instructions: Last filled 06/30/25 for a 90 day supply. celecoxib 200 mg capsule 200 mg PO BID lamotrigine 150 mg tablet 150 mg PO DAILY famotidine 40 mg tablet 40 mg PO BEDTIME clonidine HCl 0.3 mg tablet 0.3 mg PO BEDTIME Rx Instructions: TAKE 1 TABLET EVERY DAY BY ORAL ROUTE AT BEDTIME, FOR INSOMNIA. lorazepam 1 mg tablet 0.5 mg PO BID PRN (Reason: anxiety) esomeprazole magnesium 40 mg capsule,delayed release(DR/EC) 40 mg PO QAM Rx Instructions: TAKE 1 CAPSULE BY MOUTH 30-60 MINUTES BEFORE BREAKFAST ONCE DAILY X90 DAYS gabapentin 400 mg capsule 400 mg PO TID Qty: 45 0RF Changed risperidone 0.5 mg tablet 0.5 mg PO BID PRN (Reason: Agitation) Qty: 20 0RF zolpidem 5 mg tablet 5 - 7.5 mg PO BEDTIME PRN (Reason: insomnia) Qty: 21 0RF Discontinued gabapentin 100 mg capsule 100 mg PO TID No Action duloxetine 30 mg capsule,delayed release(DR/EC) See Rx Instructions .ROUTE .COMPLEX Rx Instructions: Filled on 07/21/25 fro a 90 day supply. Patient stated she is only taking 60 mg tab daily of Duloxetine and is not on the 30 mg tablet in addition to the 60 mg tablet. Stand Alone Forms: Patient Portal Discharge page Print Language: Mongolian
== END 2025-09-09 23:59 | disposition home or self-care (01) ==
LOC: HO.PHPA 11:30
PROVIDERS: Visit Provider Psychiatry & Neurology Psychiatry
DX: F31.81 Bipolar II disorder (principal); F10.20 Alcohol dependence, uncomplicated; F12.20 Cannabis dependence, uncomplicated; Z79.899 Other long term (current) drug therapy
CPT/HCPCS: 80307; 90791; 90853